=== PATIENT | male | born 1975 | race American Indian/Alaskan Native ===

== ENCOUNTER 2018-05-15 15:38 | Emergency (ER) | payer OTHER ==
[2018-05-15 16:02] VITALS: BP 128/83
[2018-05-15] MEDS ORDERED: MOTRIN PO ONE (17:13)
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
== END 2018-05-15 19:11 | disposition home or self-care (01) ==
LOC: ED 15:38
DX: S39.012A Strain of muscle, fascia and tendon of lower back, initial encounter (principal); V49.9XXA Car occupant (driver) (passenger) injured in unspecified traffic accident, initial encounter; Y93.89 Activity, other specified; Y99.8 Other external cause status; Y92.488 Other paved roadways as the place of occurrence of the external cause
CPT/HCPCS: 72040; 72100